=== PATIENT | male | born 1990 | race Caucasian/White ===

== ENCOUNTER 2021-06-13 23:37 | Emergency (ER) | payer MEDICAID ==
[~2021-06-13] VITALS: Ht 170.2 cm; Wt 163.6 kg
[2021-06-13 23:56] VITALS: BP 160/105
[2021-06-14] MEDS ORDERED: HYDROcodone/acetaminophen 10/325mg tab PO ONE (02:45)
[2021-06-14] MEDS ORDERED: TRAM100T34 PO (02:52)
[2021-06-14] MEDS ORDERED: NEOM28.37 TOP (02:52)
[2021-06-14] MEDS ORDERED: LIDOcaine 1% W/epiNEPHrine 1:100,000 20ml vial ONE (08:00)
== END 2021-06-14 03:43 | disposition home or self-care (01) ==
LOC: ER 23:38
DX: S61.412A Laceration without foreign body of left hand, initial encounter (principal); W25.XXXA Contact with sharp glass, initial encounter; Y93.89 Activity, other specified; Y92.89 Other specified places as the place of occurrence of the external cause; Y99.8 Other external cause status
CPT/HCPCS: 12002; 73130; 99284

== ENCOUNTER 2021-11-03 00:18 | Emergency (ER) | payer MEDICAID ==
[~2021-11-03] VITALS: Ht 170.2 cm; Wt 170.4 kg
[~2021-11-03 00:18] MED LIST: NEOM28.37 TOP
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
--- NOTE | 2021-11-03 01:21 | NUR ---
with Dr Dawn v/o flomax Patient c/o left sided flank pain since 99. hx of kidney stone. appears uncomfortable spoke
[2021-11-03] MEDS: tamsulosin 0.4mg capsule PO SCH (01:25)
[2021-11-03] MEDS ORDERED: sildenafil citrate 20mg tablet PO SCH (02:30)
[2021-11-03] MEDS ORDERED: sildenafil citrate 20mg tablet PO ONE (02:30)
[2021-11-03] MEDS ORDERED: normal saline 1000ml 1,000 ML IV ONE (02:35)
[2021-11-03] MEDS ORDERED: normal saline 1000ML IV soln IVB ONE (02:35)
[2021-11-03 02:38] LABS: CLARITY,URINE SLIGHTLY CLOUDY (Clear); COLOR,URINE YELLOW (Yellow); GLUCOSE, URINE NEGATIVE (Neg); KETONES,URINE NEGATIVE (Neg); LEUKOCYTE ESTERASE ,URINE TRACE (Neg); NITRITES, URINE NEGATIVE (Neg); OCCULT BLOOD,URINE NEGATIVE (Neg); PH,URINE 6.5 (4.8-8.0); PROTEIN,URINE NEGATIVE (Neg); UROBILINOGEN,URINE 0.2 E.U/dL (0.2-1.0)
[2021-11-03 02:39] LABS: UA COLLECTION TYPE CLN CATCH MIDSTREAM
[2021-11-03] MEDS: morphine 2 MG/ML inj. syringe IV PRN ×2 (02:45→04:03)
[2021-11-03 02:53] LABS: BACTERIA,URINE 1+ /HPF (Neg); MUCUS STRANDS FEW /LPF (Neg); RBC,URINE 0-2 /HPF (0-2); SQUAMOUS EPITHELIAL CELL,UR MODERATE /LPF (FEW); TRANSITIONAL EPI CELLS,URINE FEW /HPF
[2021-11-03 03:10] LABS: BASOPHILS # (AUTO) 0.1 X10'3 (0-0.2); BASOPHILS % (AUTO) 0.6 % (0-1); EOSINOPHILS # (AUTO) 0.1 X10'3 (0-0.9); EOSINOPHILS % (AUTO) 1.2 % (0-6); HEMATOCRIT 43.5 % (42.0-52.0); HEMOGLOBIN 14.5 g/dl (14.0-17.9); LYMPHOCYTES # (AUTO) 3.7 X10'3 (1.1-4.8); LYMPHOCYTES % (AUTO) 37.8 % (21-51); MEAN CORPUSCULAR HEMOGLOBIN 28.9 PG (27.0-31.0); MEAN CORPUSCULAR HGB CONC 33.3 g/dL (33.0-36.5); MEAN CORPUSCULAR VOLUME 86.7 FL (78-98); MEAN PLATELET VOLUME 8.9 FL (7.4-10.4); MONOCYTES # (AUTO) 0.5 X10'3 (0-0.9); MONOCYTES % (AUTO) 5.3 % (2-12); NEUTROPHILS # (AUTO) 5.4 X10'3 (1.8-7.7); NEUTROPHILS % (AUTO) 55.1 % (42-75); PLATELET COUNT 228 X10'3 (140-440); RED BLOOD COUNT 5.01 X10'6 (4.70-6.10); RED CELL DISTRIBUTION WIDTH 14.8 % (11.5-14.5); WHITE BLOOD COUNT 9.8 X10'3 (4.5-11.0)
[2021-11-03 03:18] LABS: ALANINE AMINOTRANSFERASE 57 U/L (12-78); ALBUMIN 3.7 G/DL (3.4-5.0); ALKALINE PHOSPHATASE 101 IU/L (46-116); ANION GAP 11 (8-16); ASPARTATE AMINO TRANSFERASE 25 U/L (10-37); BILIRUBIN,TOTAL 0.2 MG/DL (0.1-1.0); BLOOD UREA NITROGEN 18 MG/DL (7-18); BUN/CREATININE RATIO 19.4 (5.4-32.0); CALCIUM 9.3 MG/DL (8.5-10.1); CHLORIDE 102 MMOL/L (99-107); CREATININE 0.93 MG/DL (0.60-1.10); GLUCOSE 93 MG/DL (70-104); MAGNESIUM 2.1 MG/DL (1.5-2.4); POTASSIUM 4.3 MMOL/L (3.5-5.1); SODIUM 139 MMOL/L (135-145); TOTAL CARBON DIOXIDE 25.9 MMOL/L (24-32); TOTAL PROTEIN 7.4 G/DL (6.4-8.2); eGFR > 90 ML/MIN
[2021-11-03 03:59] LABS: URINE HCG NEGATIVE
[2021-11-03] MEDS ORDERED: HYDROmorphone 2mg tablet PO PRN (04:25)
[2021-11-03] MEDS ORDERED: ACET-1059 PO (04:26)
[2021-11-03 04:43] VITALS: BP 127/105
== END 2021-11-03 04:48 | disposition home or self-care (01) ==
LOC: ER 00:18
DX: R19.09 Other intra-abdominal and pelvic swelling, mass and lump (principal); R10.84 Generalized abdominal pain; F17.200 Nicotine dependence, unspecified, uncomplicated; Z87.442 Personal history of urinary calculi; Z88.8 Allergy status to other drugs, medicaments and biological substances; Z79.899 Other long term (current) drug therapy
CPT/HCPCS: 36415; 74176; 80053; 81001; 83735; 85025; 87088; 96361; 96374; 96376; 99284; J2270; J7030; 81025

== ENCOUNTER 2021-12-07 14:11 | Emergency (ER) | payer MEDICAID ==
[~2021-12-07] VITALS: Ht 170.2 cm; Wt 170.0 kg
--- NOTE | 2021-12-07 15:29 | NUR ---
To CT at this time via wheelchair.
[2021-12-07 15:41] LABS: BASOPHILS # (AUTO) 0.1 X10'3 (0-0.2); BASOPHILS % (AUTO) 0.5 % (0-1); EOSINOPHILS % (AUTO) 0.3 % (0-6); HEMATOCRIT 40.2 % (42.0-52.0); HEMOGLOBIN 13.4 g/dl (14.0-17.9); LYMPHOCYTES # (AUTO) 2.7 X10'3 (1.1-4.8); MEAN CORPUSCULAR HEMOGLOBIN 28.4 PG (27.0-31.0); MEAN CORPUSCULAR HGB CONC 33.4 g/dL (33.0-36.5); MEAN PLATELET VOLUME 8.5 FL (7.4-10.4); MONOCYTES # (AUTO) 0.6 X10'3 (0-0.9); MONOCYTES % (AUTO) 5.5 % (2-12); NEUTROPHILS # (AUTO) 7.1 X10'3 (1.8-7.7); NEUTROPHILS % (AUTO) 67.7 % (42-75); PLATELET COUNT 269 X10'3 (140-440); RED BLOOD COUNT 4.73 X10'6 (4.70-6.10); RED CELL DISTRIBUTION WIDTH 14.8 % (11.5-14.5); WHITE BLOOD COUNT 10.5 X10'3 (4.5-11.0)
[2021-12-07 15:51] LABS: ALANINE AMINOTRANSFERASE 65 U/L (12-78); ALBUMIN/GLOBULIN RATIO 1.1 (1.1-1.5); ALKALINE PHOSPHATASE 95 IU/L (46-116); ANION GAP 11 (8-16); ASPARTATE AMINO TRANSFERASE 32 U/L (10-37); BILIRUBIN,TOTAL 0.4 MG/DL (0.1-1.0); BLOOD UREA NITROGEN 15 MG/DL (7-18); BUN/CREATININE RATIO 14.2 (5.4-32.0); CALCIUM 9.2 MG/DL (8.5-10.1); CHLORIDE 102 MMOL/L (99-107); CREATININE 1.06 MG/DL (0.60-1.10); GLUCOSE 88 MG/DL (70-104); SODIUM 141 MMOL/L (135-145); TOTAL CARBON DIOXIDE 28.4 MMOL/L (24-32); TOTAL PROTEIN 7.8 G/DL (6.4-8.2); eGFR 83 ML/MIN
[2021-12-07 15:56] LABS: CLARITY,URINE SLIGHTLY CLOUDY (Clear); COLOR,URINE YELLOW (Yellow); GLUCOSE, URINE NEGATIVE (Neg); KETONES,URINE NEGATIVE (Neg); LEUKOCYTE ESTERASE ,URINE NEGATIVE (Neg); NITRITES, URINE NEGATIVE (Neg); OCCULT BLOOD,URINE NEGATIVE (Neg); PROTEIN,URINE NEGATIVE (Neg); UROBILINOGEN,URINE 0.2 E.U/dL (0.2-1.0)
[2021-12-07 16:01] LABS: ETHANOL < 0.010 GM/DL (0.0-0.010)
[2021-12-07 16:08] LABS: ACETAMINOPHEN < 2.0 UG/ML (10-30)
[2021-12-07 16:10] LABS: URINE AMPHETAMINE SCREEN NEGATIVE (Neg); URINE BARBITUATE SCREEN NEGATIVE (Neg); URINE BENZODIAZEPINES SCREEN NEGATIVE (Neg); URINE CANNABINOID SCREEN NEGATIVE (Neg); URINE COCAINE SCREEN NEGATIVE (Neg); URINE METHADONE SCREEN NEGATIVE (Neg); URINE OPIATE SCREEN NEGATIVE (Neg); URINE PHENCYCLIDINE SCREEN NEGATIVE (Neg)
[2021-12-07 16:16] LABS: UA COLLECTION TYPE VOIDED
[2021-12-07 16:22] LABS: MUCUS STRANDS FEW /LPF (Neg); SQUAMOUS EPITHELIAL CELL,UR MANY /LPF (FEW)
[2021-12-07 16:23] LABS: BACTERIA,URINE 1+ /HPF (Neg); RBC,URINE 0-2 /HPF (0-2); WBC,URINE 0-4 /HPF (0-4)
[2021-12-07] MEDS ORDERED: nicotine 21mg patch - 24 hr TD ONE (16:40)
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
--- NOTE | 2021-12-07 16:40 | NUR ---
Last BP taken in ER @ 1350 was 163/118. Will recheck BP
[2021-12-07] MEDS ORDERED: gabapentin 300mg capsule PO ONE (18:35)
[2021-12-07] MEDS ORDERED: LORazepam 1 MG tablet PO ONE (18:35)
[2021-12-07] MEDS ORDERED: oxyCODONE IR 5mg (immed. release) tablet PO ONE (18:35)
--- NOTE | 2021-12-07 19:00 | NUR ---
Packet sent to [facility]
--- NOTE | 2021-12-07 19:08 | NUR ---
One to one with the patient who reports he does not remember harming himself. He does suffer from depression and anxiety. He was tearful at times. Does state he wants to live for his family and his animals. He denies pyschotic symptoms and none were evident during the assessment. He was tearful at times but cooperative. He reports no sleep for the past 4 days.
[2021-12-07] MEDS ORDERED: GABA600T PO (19:18)
[2021-12-07] MEDS ORDERED: ESCI10TA PO (19:18)
[2021-12-07] MEDS ORDERED: ESOM40CA49 PO (19:18)
[2021-12-07] MEDS ORDERED: HYDR-3686 PO (19:18)
[2021-12-07] MEDS ORDERED: TRAZ-256 PO (19:18)
[2021-12-07] MEDS ORDERED: BACL20TA PO (19:18)
[2021-12-07] MEDS ORDERED: PROP10TA10 PO (19:18)
[2021-12-07] MEDS ORDERED: BUSP10TA11 PO (19:18)
[2021-12-07] MEDS ORDERED: HYDR-3973 PO (19:18)
[2021-12-07] MEDS ORDERED: ARIP30TA3 PO (19:18)
[2021-12-07] MEDS ORDERED: CHOL20002 PO (19:18)
[2021-12-07] MEDS ORDERED: hydrOXYzine 25 MG tablet PO PRN (19:35)
[2021-12-07] MEDS: propranolol 10mg tablet PO SCH (20:00)
--- NOTE | 2021-12-07 20:01 | NUR ---
The patient appears to be sleeping at this time
[2021-12-07] MEDS ORDERED: baclofen 10mg tablet PO PRN (20:25)
[2021-12-07] MEDS ORDERED: traZODone 50mg tablet PO PRN (20:30)
[2021-12-07] MEDS ORDERED: traZODone 50mg tablet PO SCH (21:00)
[2021-12-07] MEDS ORDERED: ARIPIPRAZOLE 15 MG TABLET PO SCH (21:00)
[2021-12-07] MEDS: HYDROcodone/acetaminophen 10/325mg tab PO SCH (21:00)
[2021-12-07] MEDS ORDERED: ESCITALOPRAM OXALATE 5 MG TABLET PO SCH (21:00)
[2021-12-07] MEDS: gabapentin 400mg capsule PO SCH (21:00)
--- NOTE | 2021-12-07 21:47 | NUR ---
The patient appears to be sleeping soundly and snoring loudly. He received medications and appears to be sedated. BP 125/73 and HR 95 and sats 97% on room air. Discussed with Dr. Roman medsilvana given and medications ordered for HS and all of his home medications will start tomorrow.
--- NOTE | 2021-12-07 23:51 | NUR ---
The patient appears to be sleeping and is snoring loudly
--- NOTE | 2021-12-08 00:43 | NUR ---
The patient appears to be sleeping and is snoring
--- NOTE | 2021-12-08 02:54 | NUR ---
The patient appears to be sleeping and is lightly snoring
--- NOTE | 2021-12-08 04:19 | NUR ---
The patient currently is asleep and snoring
[2021-12-08 05:08] VITALS: BP 111/58
--- NOTE | 2021-12-08 05:48 | NUR ---
The patient has slept well throughout the night
--- NOTE | 2021-12-08 06:43 | NUR ---
PT SLEEPING IN RGT LATERAL POSITION ,NO SIGN OF DISTRESS NOTED ,RR WNL ,WILL CONT TO MONITOR.
--- NOTE | 2021-12-08 07:01 | NUR ---
PT UP TO USE THE RESTROOM AT THIS TIME.
--- NOTE | 2021-12-08 07:13 | NUR ---
AFTER USING THE RESTROOM PT CAME TO NURSES STATION ASKING "WHAT TIME WILL BE THE ASSESMENT"INFORMED THE PT WE DON'T KNOW YET ,PT VERBALIZED UNDERSTANDING ,REQUESTING FOR HIS MORNING MEDS .INFORMED THAT WE ARE WAITING FOR BREAKFAST AND THEN WILL START THE AM MEDS.PT VERBALIZED UNDERSTANDING.TITI ANY FUTHER QUES.
[2021-12-08] MEDS ORDERED: pantoprazole 40mg Tablet.DR PO SCH (07:30)
[2021-12-08] MEDS: propranolol 10mg tablet PO SCH (08:00)
[2021-12-08] MEDS ORDERED: busPIRone 5mg tablet PO SCH (08:00)
[2021-12-08] MEDS ORDERED: cholecalciferol (vitamin D3) 1,000 unit (25mcg) tablet PO SCH (08:00)
[2021-12-08] MEDS: HYDROcodone/acetaminophen 10/325mg tab PO SCH ×2 (08:00→13:15)
[2021-12-08] MEDS: gabapentin 400mg capsule PO SCH ×2 (08:01→13:14)
--- NOTE | 2021-12-08 08:09 | NUR ---
PT UP TO EAT HIS BREAKFAST,VERY CALM AND RESPECTFULL.TOOK HIS MORNING MEDS WITHOUT ANY DIFFICULITY.
--- NOTE | 2021-12-08 08:31 | NUR ---
UP TO USE RETROOM.
--- NOTE | 2021-12-08 10:25 | NUR ---
EVAL AND BEDSIDE.
--- NOTE | 2021-12-08 10:49 | NUR ---
PT USING PHONE AT THIS TIME.
--- NOTE | 2021-12-08 12:09 | NUR ---
DR ALLAN AT BEDSIDE.RECIVED VERBAL ORDER FOR NICOTINE LONSENZES AND ATIVIAN 2MG PO Q6 HR NEEDED FOR ANXITEY.
[2021-12-08] MEDS ORDERED: NICOTINE POLACRILEX 2 MG LOZENGE BC PRN (12:10)
[2021-12-08] MEDS ORDERED: LORazepam 1 MG tablet PO PRN (12:10)
--- NOTE | 2021-12-08 12:58 | NUR ---
PT SLEEPING IN LFT LATERAL POSITION AT THIS TIME.
--- NOTE | 2021-12-08 14:26 | NUR ---
SPOKE TO GRETEL FROM [facility] ,REQUESTING FOR MED CLEAREANCE AND MED REC TO FAX TO THEM.
--- NOTE | 2021-12-08 15:46 | NUR ---
[facility] [phone][facility]
--- NOTE | 2021-12-08 15:47 | NUR ---
PT WOKE UP FROM SLEEP WENT TO USE RESTROOMN ,NOW BACK TO BED.
--- NOTE | 2021-12-08 16:35 | NUR ---
RECIVED CALL FROM [facility] OFFICE PER THEM PT IS BEEN ACCEPTED TO [facility] AND THE RIDE WILL BE HERE IN 10-15 MINS.
[2021-12-08] MEDS ORDERED: nicotine 21mg patch - 24 hr TD SCH (20:00)
== END 2021-12-08 17:04 | disposition home or self-care (01) ==
LOC: ER 14:11
DX: R45.851 Suicidal ideations (principal); F20.9 Schizophrenia, unspecified; Z87.442 Personal history of urinary calculi; Z88.5 Allergy status to narcotic agent; Z88.6 Allergy status to analgesic agent; Z88.8 Allergy status to other drugs, medicaments and biological substances; Z79.899 Other long term (current) drug therapy; Z20.822 Contact with and (suspected) exposure to COVID-19
CPT/HCPCS: 36415; 70450; 80053; 80305; 80320; 80329; 81001; 84443; 85025; 87635; 93005; 99285; C9803; Q0177

== ENCOUNTER 2021-12-27 22:00 | Emergency (ER) | payer MEDICAID ==
[~2021-12-27] VITALS: Ht 170.2 cm; Wt 161.4 kg
[~2021-12-27 22:00] MED LIST changes: +ARIP30TA3 PO; +BACL20TA PO; +BUSP10TA11 PO; +CHOL20002 PO; +ESCI10TA PO; +ESOM40CA49 PO; +GABA600T PO; +HYDR-3686 PO; +HYDR-3973 PO; -NEOM28.37 TOP; +PROP10TA10 PO; +TRAZ-256 PO
[2021-12-27 22:06] VITALS: BP 150/79
[2021-12-27] MEDS ORDERED: HYDROcodone/acetaminophen 10/325mg tab PO ONE (22:50)
[2021-12-27] MEDS ORDERED: LIDOcaine 1% 30ml preserv. free vial IJ ONE (22:50)
== END 2021-12-27 23:50 | disposition home or self-care (01) ==
LOC: ER 22:01
DX: S61.411A Laceration without foreign body of right hand, initial encounter (principal); S60.412A Abrasion of right middle finger, initial encounter; Z87.442 Personal history of urinary calculi; Z88.8 Allergy status to other drugs, medicaments and biological substances; Z79.899 Other long term (current) drug therapy; W22.8XXA Striking against or struck by other objects, initial encounter; Y93.89 Activity, other specified; Y92.89 Other specified places as the place of occurrence of the external cause; Y99.8 Other external cause status
CPT/HCPCS: 12001; 73130; 99283

== ENCOUNTER 2022-02-02 21:20 | Emergency (ER) | payer MEDICAID ==
[~2022-02-02] VITALS: Ht 170.2 cm; Wt 157.8 kg
[2022-02-02] MEDS ORDERED: ondansetron 4mg rapidly disintigrating tab PO ONE (22:50)
[2022-02-02] MEDS ORDERED: acetaminophen 325mg tablet PO ONE (22:50)
[2022-02-02] MEDS ORDERED: morphine 4 MG/ML inj SYRINge IM ONE (22:50)
[2022-02-02 22:51] LABS: CLARITY,URINE CLEAR (Clear); COLOR,URINE YELLOW (Yellow); GLUCOSE, URINE NEGATIVE (Neg); KETONES,URINE NEGATIVE (Neg); LEUKOCYTE ESTERASE ,URINE NEGATIVE (Neg); NITRITES, URINE NEGATIVE (Neg); OCCULT BLOOD,URINE NEGATIVE (Neg); PH,URINE 5.5 (4.8-8.0); PROTEIN,URINE NEGATIVE (Neg); UROBILINOGEN,URINE 0.2 E.U/dL (0.2-1.0)
[2022-02-02 22:53] LABS: UA COLLECTION TYPE CLN CATCH MIDSTREAM
[2022-02-02 22:57] LABS: BASOPHILS # (AUTO) 0.1 X10'3 (0-0.2); EOSINOPHILS # (AUTO) 0.1 X10'3 (0-0.9); EOSINOPHILS % (AUTO) 1.2 % (0-6); HEMATOCRIT 39.2 % (42.0-52.0); HEMOGLOBIN 13.1 g/dl (14.0-17.9); LYMPHOCYTES # (AUTO) 3.5 X10'3 (1.1-4.8); LYMPHOCYTES % (AUTO) 34.1 % (21-51); MEAN CORPUSCULAR HEMOGLOBIN 28.8 PG (27.0-31.0); MEAN CORPUSCULAR HGB CONC 33.4 g/dL (33.0-36.5); MEAN CORPUSCULAR VOLUME 86.3 FL (78-98); MEAN PLATELET VOLUME 9.2 FL (7.4-10.4); MONOCYTES # (AUTO) 0.6 X10'3 (0-0.9); MONOCYTES % (AUTO) 5.7 % (2-12); NEUTROPHILS # (AUTO) 5.9 X10'3 (1.8-7.7); PLATELET COUNT 246 X10'3 (140-440); RED BLOOD COUNT 4.54 X10'6 (4.70-6.10); RED CELL DISTRIBUTION WIDTH 14.9 % (11.5-14.5); WHITE BLOOD COUNT 10.2 X10'3 (4.5-11.0)
[2022-02-02 23:00] LABS: URINE HCG NEGATIVE
[2022-02-02 23:03] LABS: ALANINE AMINOTRANSFERASE 33 U/L (12-78); ALBUMIN 3.5 G/DL (3.4-5.0); ALKALINE PHOSPHATASE 88 IU/L (46-116); ANION GAP 8 (8-16); ASPARTATE AMINO TRANSFERASE 12 U/L (10-37); BILIRUBIN,TOTAL 0.2 MG/DL (0.1-1.0); BLOOD UREA NITROGEN 21 MG/DL (7-18); BUN/CREATININE RATIO 21.6 (5.4-32.0); CALCIUM 8.8 MG/DL (8.5-10.1); CHLORIDE 105 MMOL/L (99-107); CREATININE 0.97 MG/DL (0.60-1.10); GLUCOSE 111 MG/DL (70-104); LIPASE 67 U/L (73-393); POTASSIUM 3.8 MMOL/L (3.5-5.1); SODIUM 138 MMOL/L (135-145); TOTAL CARBON DIOXIDE 24.7 MMOL/L (24-32); TOTAL PROTEIN 7.1 G/DL (6.4-8.2); eGFR > 90 ML/MIN
[2022-02-02 23:50] VITALS: BP 111/65
== END 2022-02-03 00:35 | disposition home or self-care (01) ==
LOC: ER 21:21
DX: R10.9 Unspecified abdominal pain (principal); G89.29 Other chronic pain; M54.9 Dorsalgia, unspecified; Z87.442 Personal history of urinary calculi; Z88.8 Allergy status to other drugs, medicaments and biological substances; Z88.6 Allergy status to analgesic agent; Z79.899 Other long term (current) drug therapy
CPT/HCPCS: 36415; 74176; 80053; 81003; 83690; 85025; 96372; 99284; J2270; 81025

== ENCOUNTER 2022-03-06 01:46 | Emergency (ER) | payer MEDICAID ==
[~2022-03-06] VITALS: Ht 170.2 cm; Wt 158.6 kg
[2022-03-06 01:51] VITALS: BP 137/87
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
== END 2022-03-06 06:40 | disposition left against medical advice (07) ==
LOC: EEVIPCON 01:47 → ER 01:47
DX: Z00.8 Encounter for other general examination (principal); Y09 Assault by unspecified means; Z53.21 Procedure and treatment not carried out due to patient leaving prior to being seen by health care provider
CPT/HCPCS: A6449

== ENCOUNTER 2024-11-25 01:47 | Emergency (ER) | payer MEDICAID ==
[~2024-11-25] VITALS: Ht 170.2 cm; Wt 138.6 kg
[2024-11-25 01:53] VITALS: TEMP 98
[2024-11-25] MEDS: aspirin 325mg tablet PO ONE (02:34)
[2024-11-25 02:36] VITALS: BP 142/88; PULSE 73; RESP 18; O2SAT 99
[2024-11-25 02:49] LABS: D-DIMER 4.05 MG/L FEU (0-0.50)
== END 2024-11-25 04:46 | disposition left against medical advice (07) ==
LOC: ER 01:47
DX: M79.662 Pain in left lower leg (principal); R79.1 Abnormal coagulation profile; Z87.440 Personal history of urinary (tract) infections; Z88.8 Allergy status to other drugs, medicaments and biological substances
CPT/HCPCS: 36415; 73564; 85379; 99284

== ENCOUNTER 2025-06-04 15:15 | Outpatient (CLI) | payer MEDICAID ==
--- NOTE | 2025-06-04 17:29 | RADIOLOGY REPORT ---
EXAM: MR MRI LOWER EXTREMITY LEFT HISTORY: L KNEE PAIN COMPARISON: None TECHNIQUE: Multiplanar, multisequence imaging of the left knee was performed without contrast FINDINGS: MEDIAL COMPARTMENT: Longitudinal horizontal incomplete inner 1/3 type tear of the central body. Radial type tear of the posterior horn which appears to be complete. Opposing broad-based near full-thickness cartilage loss of the medial femoral condyle LATERAL COMPARTMENT: Intact lateral meniscus. No focal chondrosis or subchondral edema. PATELLOFEMORAL COMPARTMENT: Partial-thickness chondrosis of the central aspect of the lateral patellar facet CRUCIATE LIGAMENTS: Intact anterior and posterior cruciate ligaments. MEDIAL SUPPORTING STRUCTURES: Intact medial collateral ligament. LATERAL SUPPORTING STRUCTURES: Intact iliotibial band, lateral capsular ligament, fibular collateral ligament, popliteus, and biceps femoris tendons EXTENSOR MECHANISM: Intact JOINT SPACE/FLUID: Small knee joint effusion. BONES: No acute fracture, osseous contusion, or aggressive focal osseous lesion . Insertional cysts deep to the medial tibial spine. MUSCLES: Trace intramuscular fluid posterior to the popliteus along the medial aspect of the soleus correlate for muscle strain. NEUROVASCULAR: Unremarkable OTHER: None IMPRESSION: 1. Longitudinal horizontal incomplete inner 1/3 type tear of the central body. 2. Radial type tear of the posterior horn which appears to be complete. 3. Opposing broad-based near full-thickness cartilage loss of the medial femoral condyle. 4. Trace intramuscular fluid posterior to the popliteus along the medial aspect of the soleus correlate for muscle strain.
== END 2025-06-04 23:59 | disposition home or self-care (01) ==
LOC: MRI02 15:15
PROVIDERS: ATTEND Family Medicine
DX: S83.242A Other tear of medial meniscus, current injury, left knee, initial encounter (principal); M25.562 Pain in left knee; X58.XXXA Exposure to other specified factors, initial encounter; Y93.89 Activity, other specified; Y92.89 Other specified places as the place of occurrence of the external cause; Y99.8 Other external cause status
CPT/HCPCS: 73721

== ENCOUNTER 2025-06-30 00:44 | Emergency (ER) | payer MEDICAID ==
[~2025-06-30] VITALS: Ht 170.2 cm; Wt 137.2 kg
[2025-06-30 00:51] VITALS: TEMP 98.8
[2025-06-30] MEDS: ipratropium/albuterol 3ml nebule NEB STA (01:17)
[2025-06-30 01:19] VITALS: PULSE 95; RESP 18; O2SAT 95
[2025-06-30 01:26] VITALS: PULSE 103; RESP 16; O2SAT 94
[2025-06-30 01:33] LABS: INFLUENZA TYPE A ANTIGEN RAPID NEGATIVE (Negative); INFLUENZA TYPE B ANTIGEN RAPID NEGATIVE (Negative)
[2025-06-30 01:34] LABS: MEAN PLATELET VOLUME 8.3 FL (7.4-10.4); RED CELL DISTRIBUTION WIDTH 15.5 % (11.5-14.5)
--- NOTE | 2025-06-30 01:36 | Physician Documentation ---
History of Present Illness ~ Chief Complaint: Cough Stated Complaint: CONGESTION,COUGH Time Seen by MD: 01:33 Primary Medical Doctor: dr. jose MILLS Cough, short of breath. No sore throat, fevers, N/V/D. Medication Reconciliation Allergies: Coded Allergies: cetirizine (Verified Allergy, Severe, 11/25/24) ketorolac (Verified Allergy, Mild, 11/25/24) kiwi (Verified Allergy, Unknown, 11/25/24) Scheduled Aripiprazole (Abilify), 1 TAB PO HS, (Reported) Buspirone Hcl* (Buspar*), 1 TAB PO BID, (Reported) Cholecalciferol (Vitamin D3) (Vitamin D3), 1 CAP PO DAILY, (Reported) Escitalopram Oxalate (Lexapro), 3 TAB PO HS, (Reported) Esomeprazole Magnesium (Nexium), 1 CAP PO DAILY, (Reported) Gabapentin (Neurontin), 2 TAB PO TID, (Reported) Hydrocodone Bit/Acetaminophen (Hydrocodone-Apap 10-325 Tablet), 1 TABLET PO QID, (Reported) Propranolol Hcl* (Inderal*), 2 TAB PO BID, (Reported) Trazodone HCl (Trazodone HCl), 1 TAB PO HS, (Reported) Scheduled PRN Baclofen (Baclofen), 1 TABLET PO Q6H PRN for muscle spasms, (Reported) Hydroxyzine Hcl* (Atarax*), 1 TAB PO DAILY PRN for for anxiety/agitation, (Reported) Trazodone HCl (Trazodone HCl), 1 TAB PO HS PRN for sleep, (Reported) Past Medical History Past Medical History: Kidney Stones Past Surgical History: noncontributory Alcohol Use: None Drug Use: none Lives In: Home Review of Systems All Other Systems at this time: Reviewed and Negative Physical Exam Vital Signs: Temperature: 98.8, Source: Oral, Heart Rate: 103, Respiratory Rate: 16, BP: 143/84, Pulse Oximetry: 94, Weight: 137.230 Physical Exam General: Alert, no apparent distress. Neck: Full range of motion. Respiratory: mild wheezes throughout Extremities: Normal range of motion, no deformity. Neurologic: Oriented x4. Psychiatric: Normal mood and affect. Skin: Normal color, warm and dry. No edema, no ecchymosis. Progress Results/Orders Results/Orders Orders - IZA CRUMP MD Chest,Single View (06/30/25 01:18) Covid19 Binax Poc Result Entry (06/30/25 00:57) * Rt Notification Q1H (06/30/25 01:05) Completed Orders - IZA CRUMP MD Cbc/Diff (06/30/25 00:56) CMP (06/30/25 00:56) Chest,Single View (06/30/25 01:18) Influenza Type A&B Rapid Test (06/30/25 00:57) Ipratropium/Albuterol Nebule (Ipratrop/A (06/30/25 01:05) Dexamethasone Inj (Decadron 10mg/Ml Inj) (06/30/25 01:54) Medications Received in ER Medications (Trade) Dose Ordered Sig/Ayana Route PRN Reason Start Time Stop Time Status Last Admin Dose Admin (ipratrop/ albuterol 0.5-3(2.5) MG/3ml nebule) 3 ml ONCE STAT NEB 06/30/25 01:05 06/30/25 01:14 DC 06/30/25 01:17 3 ML Vital Signs 06/30/25 06/30/25 06/30/25 06/30/25 00:51 01:19 01:26 01:37 Temp 98.8 Pulse 102 95 103 105 Resp 26 18 16 16 B/P (MAP) 143/84 136/77 (96) Pulse Ox 93 95 94 93 O2 Delivery Room Air* Room Air* O2 Flow Rate 0 0 0 FiO2 21 21 06/30/25 01:53 Resp 18 B/P (MAP) Laboratory Tests Test 06/30/25 01:10 06/30/25 01:22 Influenza Type A Antigen Negative Influenza Type B Antigen Negative SARS-CoV-2 Antigen (Rapid) Negative White Blood Count 11.8 H Red Blood Count 4.81 Hemoglobin 14.3 Hematocrit 42.2 Mean Corpuscular Volume 87.7 Mean Corpuscular Hemoglobin 29.7 Mean Corpuscular Hemoglobin Concent 33.9 Red Cell Distribution Width 15.5 H Platelet Count 237 Mean Platelet Volume 8.3 Neutrophils (%) (Auto) 77.4 H Lymphocytes (%) (Auto) 15.7 L Monocytes (%) (Auto) 6.1 Eosinophils (%) (Auto) 0.2 Basophils (%) (Auto) 0.6 Neutrophils # (Auto) 9.1 H Lymphocytes # (Auto) 1.8 Monocytes # (Auto) 0.7 Eosinophils # (Auto) 0.0 Basophils # (Auto) 0.1 CBC Comment Sodium Level 144 Potassium Level 3.9 Chloride Level 107 Carbon Dioxide Level 27.2 Anion Gap 10 Blood Urea Nitrogen 16 Creatinine 0.91 Estimated GFR/1.73 m2 > 90 BUN/Creatinine Ratio 17.6 Glucose Level 94 Calcium Level 8.5 Total Bilirubin 0.4 Aspartate Amino Transf (AST/SGOT) 18 Alanine Aminotransferase (ALT/SGPT) 19 Alkaline Phosphatase 83 Total Protein 7.3 Albumin 3.8 Globulin 3.5 Albumin/Globulin Ratio 1.1 Chemistry Comments Medical Decision Making Additional information obtaine: N/A Findings URI with hyperreactive airway. Breathing Tx improved return precautions. CXR interpreted by me demonstrated no PNA, no PTX, normal contours. Differential Dx:Considerations: Include: Allergic rhinitis, Otitis media, Peritonsillar abscess, Pharyngitis-Diphtheria, Pharyngitis-Streptoccal, Pharyngitis-Viral, Pneumonia, Pnuemonitis, Sinusitis, URI Departure Disposition: HOME / SELF CARE / HOMELESS Impression: Primary Impression: URI (upper respiratory infection) Additional Impression: Bronchitis Condition: Stable Discharge Instructions: Upper Respiratory Infection, Adult Referrals: NO PRIMARY CARE PROVIDER (PCP) Education Educated: Patient Educated regarding: diagnosis, treatment, prognosis, need for follow up Signature Scribe Signature: . Attestation: . IZA CRUMP MD Jun 30, 2025 01:36
--- NOTE | 2025-06-30 01:37 | RADIOLOGY REPORT ---
CHEST RADIOGRAPH Indication: SOB, COUGH Technique: Single frontal view of the chest was obtained COMPARISON: CT HEAD on DOS: 12/07/21 FINDINGS: Lines and Tubes: None Lungs: Clear Pleura: No effusion. No pneumothorax. Cardiomediastinal contours: Unremarkable Bones: Unremarkable IMPRESSION: 1. No acute disease.
[2025-06-30 01:49] LABS: CREATININE 0.91 MG/DL (0.60-1.10); TOTAL CARBON DIOXIDE 27.2 MMOL/L (24-32); eCRCL 108 ML/MIN; eGFR > 90 ML/MIN
[2025-06-30] MEDS: dexamethasone sod phosphate 10mg/ml inj PO STA (02:05)
[2025-06-30 02:09] VITALS: BP 123/78; PULSE 103; RESP 18; O2SAT 95
== END 2025-06-30 02:12 | disposition home or self-care (01) ==
LOC: ER 00:44
DX: J06.9 Acute upper respiratory infection, unspecified (principal); J40 Bronchitis, not specified as acute or chronic; Z87.442 Personal history of urinary calculi; Z88.8 Allergy status to other drugs, medicaments and biological substances; Z79.899 Other long term (current) drug therapy; Z20.822 Contact with and (suspected) exposure to COVID-19
CPT/HCPCS: 36415; 71045; 80053; 85025; 87804; 87811; 94640; 99284; J1100; 94760